=== PATIENT | female | born 1965 | race Caucasian/White ===

== ENCOUNTER 2024-07-07 18:35 | Emergency (ER) | payer OTHER ==
[~2024-07-07] VITALS: Ht 172.7 cm; Wt 70.3 kg
--- NOTE | 2024-07-07 18:41 | NUR ---
PRINTER NOT PRINTING LABELS
[2024-07-07 20:39] LABS: BASOPHILS # (AUTO) 0.03 K/uL (0.00-0.20); BASOPHILS % (AUTO) 0.4 % (0.0-5.0); EOSINOPHILS # (AUTO) 0.02 K/uL (0.00-0.70); EOSINOPHILS % (AUTO) 0.2 % (0.0-8.0); HEMATOCRIT 40.4 % (36-48); IMMATURE GRANULOCYTE ABSOLUTE 0.02 K/uL (0-1); LYMPHOCYTES # (AUTO) 1.4 K/uL (1.0-4.8); LYMPHOCYTES % (AUTO) 17.3 % (21.0-51.0); MEAN CORPUSCULAR HEMOGLOBIN 33.5 pg (27.0-33.0); MEAN CORPUSCULAR HGB CONC 34.2 g/dL (32.0-36.0); MEAN CORPUSCULAR VOLUME 98.1 fL (79-99); MONOCYTES # (AUTO) 0.8 K/uL (0.1-1.0); MONOCYTES % (AUTO) 9.5 % (3.0-13.0); NEUTROPHILS # (AUTO) 5.9 K/uL (1.8-7.7); NEUTROPHILS % (AUTO) 72.4 % (40.0-77.0); PLATELET COUNT (AUTO) 195 K/uL (130-400); RED BLOOD CELL COUNT(AUTO) 4.12 MIL/uL (4.00-5.50); WHITE BLOOD COUNT (AUTO) 8.2 K/uL (4.8-10.8)
[2024-07-07 20:40] LABS: APPEARANCE,URINE CLEAR (CLEAR); BILIRUBIN,URINE NEGATIVE (NEGATIVE); COLOR,URINE LIGHT-YELLOW (YELLOW); GLUCOSE, URINE (UA) NEGATIVE (NEGATIVE); KETONES,URINE NEGATIVE (NEGATIVE); LEUKOCYTE ESTERASE ,URINE 500 Leu/uL (NEGATIVE); NITRATE,URINE NEGATIVE (NEGATIVE); OCCULT BLOOD,URINE LARGE (NEGATIVE); PH,URINE 5.5 (5.0-8.0); PROTEIN,URINE NEGATIVE (NEGATIVE); UROBILINOGEN,URINE 0.2 mg/dL (0.2-1.0)
[2024-07-07 20:41] LABS: ADD UA MICROSCOPIC YES
[2024-07-07 20:43] LABS: BACTERIA,URINE MANY /HPF (None Seen); MUCUS,URINE RARE LPF (None Seen); SQUAMOUS EPITHELIAL CELL,UR RARE /HPF (0-2)
[2024-07-07 20:50] LABS: CREATININE 0.7 mg/dL (0.5-1.0); POTASSIUM 4.2 mmol/L (3.5-5.1)
[2024-07-07] MEDS: LIDOCAINE HCL-MPF 2% 5ML VIAL ONE (21:27)
[2024-07-07] MEDS: cefTRIAXone 1G VIAL IM ONE (21:28)
[2024-07-07] MEDS ORDERED: NITR100C4 PO (21:35)
--- NOTE | 2024-07-07 21:35 | ERN ---
ED Note History of Present Illness Stated Complaint: HEMATURIA Chief Complaint: Blood in Urine: Time Seen by MD: 18:38 Time Seen by Midlevel: 18:38 Dictation: The patient is a 58-year-old female with a history of hyperlipidemia who presents to the emergency department with complaints of hematuria, burning urination, burning your urgency for a month. Patient reports she was taking cranberry juice with the help with symptoms. Patient denies any flank pain, abdominal pain, nausea vomiting, current fevers. Allergies: Coded Allergies: sulfamethoxazole (Unverified Allergy, Unknown, 07/07/24) trimethoprim (Unverified Allergy, Unknown, 07/07/24) Home Meds Active Scripts Nitrofurantoin Monohyd/M-Cryst (Macrobid 100 mg Capsule) 100 Mg Capsule, 1 CAP PO BID for 5 Days, #10 CAP 0 Refills Prov:YESICA MATTHEWS FRANCHISE DEVELOPMENT MANAGER 07/07/24 Past Medical History Past Medical History: Anxiety, High Cholesterol Surgical History: Tonsillectomy, Other RN Note Reviewed/Agreed w/PFSH: Yes Review of System Dictation Constitutional: Negative for fever,chills, and weight loss Eyes: Negative for injury, pain,redness, and discharge ENT: Negative for injury,pain or swelling Cardiovascular: Negative for chest pain, palpitations, and edema Respiratory: Negative for shortness of breath, cough, and wheezing, Abdomen/GI: Negative for abdominal pain, nausea, vomiting, diarrhea, and constipation Back: Negative for injury and pain : Negative for injury,and discharge positive for burning urination, hematuria MS/Extremity: Negative for injury and deformity Skin: Negative for rash, and discoloration Neuro: Negative for headache, weakness, numbness, tingling, and seizure Psych: Negative for suicide ideation, homicidal ideation, and hallucinations Initial Vital Sign VS Vital Signs Date Time Temp Pulse Resp B/P (MAP) Pulse Ox O2 Delivery O2 Flow Rate FiO2 07/07/24 18:36 99.1 93 18 155/92 96 Room Air 0 07/07/24 21:40 21 Physical Exam Dictation Vital Signs reviewed General Appearance: Alert, oriented x 3, no acute distress, well developed, nourished. Head and Face: non-traumatic. Eyes: PERRL, pink conjunctivas, eyelid no trauma, anterior chamber with arcus senilis. Ears: Pinnas intact and no signs of trauma or erythema ear canals clear and no discharge TM no erythema Nose: No discharge, no bleeding. Oropharynx: Mouth normal, tongue pink. pharynx clear,no erythema, tonsils no exudates, no abscesses noted, mucous membrane moist Neck: Supple, non-tender, no thyromegaly, no masses, no JVD, no bruits Breast:Deferred Chest:No tenderness, no crepitus, no paradoxical movement, no retractions Lungs:Clear, well-ventilated, symmetric, no rales, no wheezing, no rhonchi, no stridor, good breath sounds bilaterally Heart: Regular rate, regular rhythm, no murmur, no gallops Vascular: no peripheral edema, Abdomen: Soft, positive bowel sounds, nondistended, no guarding, nontender, no rebound, no masses no hepatomegaly, no splenomegaly, no Malik's sign, no hernias. Rectal: Deferred Genital: Deferred Neurological: Normal speech, motor function intact, sensory function intact Musculoskeletal: Neck nontender, full range of motion, back nontender, full range of motion, Extremities: nontender, full range of motion Skin: Color pink, dry, no turgor, no rash, no lacerations, no abrasions, no contusions. Lymphatic: Deferred Results (Laboratory/Radiology) Laboratory/Radiology Laboratory Tests Test 07/07/24 20:20 07/07/24 20:29 Urine Color LIGHT-YELLOW (YELLOW) Urine Appearance CLEAR (CLEAR) Urine pH 5.5 (5.0-8.0) Urine Specific [place] 1.002 (1.001-1.031) Urine Protein NEGATIVE mg/dL (NEGATIVE) Urine Glucose (UA) NEGATIVE mg/dL (NEGATIVE) Urine Ketones NEGATIVE mg/dL (NEGATIVE) Urine Occult Blood LARGE (NEGATIVE) H Urine Nitrate NEGATIVE (NEGATIVE) Urine Bilirubin NEGATIVE mg/dL (NEGATIVE) Urine Urobilinogen 0.2 mg/dL (0.2-1.0) Urine Leukocyte Esterase 500 Macho/uL (NEGATIVE) H Urine RBC 2-5 /HPF (0-1) H Urine WBC 11-25 /HPF (0-1) H Urine Squamous Epithelial Cells RARE /HPF (0-2) Urine Bacteria MANY /HPF (None Seen) White Blood Count 8.2 K/uL (4.8-10.8) Red Blood Count 4.12 MIL/uL (4.00-5.50) Hemoglobin 13.8 g/dL (12.0-16.0) Hematocrit 40.4 % (36-48) Mean Corpuscular Volume 98.1 fL (79-99) Mean Corpuscular Hemoglobin 33.5 pg (27.0-33.0) H Mean Corpuscular Hemoglobin Concent 34.2 g/dL (32.0-36.0) Red Cell Distribution Width 12.0 % (11.0-15.5) Platelet Count 195 K/uL (130-400) Mean Platelet Volume 9.3 fL (7.5-10.5) Immature Granulocyte % (Auto) 0.2 % (0-1) Neutrophils (%) (Auto) 72.4 % (40.0-77.0) Lymphocytes (%) (Auto) 17.3 % (21.0-51.0) L Monocytes (%) (Auto) 9.5 % (3.0-13.0) Eosinophils (%) (Auto) 0.2 % (0.0-8.0) Basophils (%) (Auto) 0.4 % (0.0-5.0) Neutrophils # (Auto) 5.9 K/uL (1.8-7.7) Lymphocytes # (Auto) 1.4 K/uL (1.0-4.8) Monocytes # (Auto) 0.8 K/uL (0.1-1.0) Eosinophils # (Auto) 0.02 K/uL (0.00-0.70) Basophils # (Auto) 0.03 K/uL (0.00-0.20) Absolute Immature Granulocyte (auto 0.02 K/uL (0-1) Nucleated Red Blood Cells 0.0 % (0.0-0.19) Sodium Level 133 mmol/L (136-145) L Potassium Level 4.2 mmol/L (3.5-5.1) Chloride Level 97 mmol/L (101-111) L Carbon Dioxide Level 27 mmol/L (21-32) Blood Urea Nitrogen 4 mg/dL (7-18) L Creatinine 0.7 mg/dL (0.5-1.0) Glomerular Filtration Rate Calc 101 mL/min (>90) Random Glucose 94 mg/dL (70-105) Total Calcium 9.2 mg/dL (8.5-10.1) Labs Reviewed?: Yes ED Course ED Course Orders Procedure Category Date Status Time Cbc With Differential LAB 07/07/24 Complete 19:20 Urinalysis Profile LAB 07/07/24 Complete 19:20 Basic Metabolic Panel LAB 07/07/24 Complete 19:20 Culture Urine CAIO 07/07/24 Complete 20:42 Ceftriaxone 1g Vial PHA 07/07/24 Complete (Rocephine 1g Inj) 21:00 Lidocaine Hcl-Mpf 2% PHA 07/07/24 Complete 5ml Vial (Lidocaine 21:04 Current Medications Medications (Trade) Dose Ordered Sig/Emiliano Route PRN Reason Start Time Stop Time Status Last Admin Dose Admin Ceftriaxone Sodium (ROCEphine 1G INJ) 1 gm ONCE ONCE IM 07/07/24 21:00 07/07/24 21:01 DC 07/07/24 21:28 Lidocaine HCl (Lidocaine HCl-Mpf 2% 5ml Vial) 1 ml STK-MED ONCE .ROUTE 07/07/24 21:04 07/07/24 21:04 DC Vital Signs Date Time Temp Pulse Resp B/P (MAP) Pulse Ox O2 Delivery O2 Flow Rate FiO2 07/07/24 21:40 98.8 79 18 137/89 98 Room Air* 0 21 07/07/24 18:36 99.1 93 18 155/92 96 Room Air 0 Medical Decision Making MDM The patient is a 58-year-old female with a history of hyperlipidemia who presents to the emergency department with complaints of hematuria, burning urination, burning your urgency for a month. Patient reports she was taking cranberry juice with the help with symptoms. Patient denies any flank pain, abdominal pain, nausea vomiting, current fevers. CBC showed no leukocytosis, mild normocytic anemia, chemistry showed mild hyponatremia, hypochloremia. Urinalysis positive for leukocyte esterase. Patient at this time refuses CT for evaluation of kidney stones. Reports she is not having any pain and states if anything changes to be back to the hospital. Patient in no acute distress, nontoxic appearance, we will be discharged to follow up with PCP. Differential diagnosis: UTI, pyelonephritis, sepsis, electrolyte imbalance, kidney stones Need for hospitalization: Patient does not meet criteria for hospitalization. There are no social concerns with this patient. DX & DISP Disposition: Discharge Departure Impression: Primary Impression: Urinary tract infection with hematuria Condition: Stable Scripts Nitrofurantoin Monohyd/M-Cryst (Macrobid 100 mg Capsule) 100 Mg Capsule 1 CAP PO BID for 5 Days, #10 CAP 0 Refills Prov: YESICA MATTHEWS 07/07/24 Additional Instructions: Please follow up with PCP in 1-2 days. If symptoms worsen please return to ER. FOLLOW-UP WITH PRIMARY CARE PROVIDER IN 1 TO 2 DAYS. TAKE MEDICATIONS DIRECTED HERE IN THE EMERGENCY ROOM. OKAY TO CONTINUE HOME MEDICATIONS UNLESS OTHERWISE DISCUSSED DURING YOUR VISIT IN THE EMERGENCY ROOM TODAY. RETURN TO YOUR NEAREST EMERGENCY ROOM IF SYMPTOMS WORSEN OR IF THERE IS NO IMPROVEMENT. CALL 911 IF YOU NEED IMMEDIATE ASSISTANCE. TAKE TYLENOL OR MOTRIN [id number] NEEDED AND IF NO CONTRAINDICATIONS ARE PRESENT. INCREASE ORAL HYDRATION. A WOUND CULTURE OR URINE CULTURE WAS ORDERED HERE IN THE EMERGENCY ROOM DEPARTMENT PLEASE FOLLOW-UP WITH PRIMARY CARE PROVIDER AND ADVISE THEM TO GET REPEAT PORTS FROM OUR FACILITY. IF YOU HAD ANY ELDER WRAP/SPLINTS THAT WERE APPLIED HERE, PLEASE DO NOT REMOVE THEM UNTIL YOU SEE YOUR PRIMARY CARE OR SPECIALTY. Referrals: SELF,REFERRAL (PCP) Time of Disposition: 21:34 I have reviewed the case, and I agree with, Diagnosis and Plan ATTESTATION BY PHYSICIAN I PERFORMED THE SUBSTANTIVE PORTION OF THE VISIT. I HAVE REVIEWED AND PERSONALLY MADE AND APPROVED THE MANAGEMENT PLAN THAT IS DOCUMENTED IN THE NOTE BY MYSELF FOR THE A PP. I ACKNOWLEDGED FOR RESPONSIBILITY FOR THE PATIENT'S MANAGEMENT PLAN. YESICA MATTHEWS Jul 07, 2024 21:35 STEWART THAYER MD Jul 09, 2024 19:18
[2024-07-07 21:40] VITALS: BP 137/89; PULSE 79; RESP 18; TEMP 98.7; O2SAT 98
== END 2024-07-07 21:43 | disposition home or self-care (01) ==
LOC: EDH 18:35
DX: N39.0 Urinary tract infection, site not specified (principal); R31.9 Hematuria, unspecified; E78.00 Pure hypercholesterolemia, unspecified; Z88.1 Allergy status to other antibiotic agents; Z88.2 Allergy status to sulfonamides; Z90.89 Acquired absence of other organs
CPT/HCPCS: 99283; 80048; 85025; 87086 ×2; 87186; 81001; 36415; 96372; J0696; J3490

== ENCOUNTER 2024-07-19 12:39 | Observation (INO) | payer OTHER ==
[~2024-07-19] VITALS: Ht 172.7 cm; Wt 71.6 kg
[~2024-07-19 12:39] MED LIST: NITR100C4 PO
--- NOTE | 2024-07-19 15:50 | NUR ---
PT PLACED IN MINAYA D AT THIS TIME AOX4 NO SIGNS OF DISTRESS
--- NOTE | 2024-07-19 16:10 | HMCIMG ---
CT ABDOMEN/PELVIS W/O CONTRAST REASON: r/o pyelonephritis COMPARISON: None. FINDINGS: Lung bases are clear. There are no focal liver lesions. Liver is not enlarged.. Spleen and pancreas appear unremarkable. The gallbladder appears normal as well. Kidneys appear normal. There is no perinephric stranding. There is no evidence of mass, stone or hydronephrosis. Ureters and urinary bladder appear unremarkable as well. Bowel loops appear unremarkable. This includes normal appearance of the appendix There is no evidence of free fluid or intraperitoneal air. There are no focal fluid collections. Aorta and retroperitoneum appear normal as do pelvic soft tissue structures. The anterior abdominal wall is intact. Osseous structures appear unremarkable. IMPRESSION: 1. Negative noncontrast CT abdomen and pelvis with particular attention to the kidneys. CT was performed with one or more following dose reduction techniques: automated exposure control, adjustment of the mA and kv according to patient's size, or use of a iterative reconstruction technique.
[2024-07-19 16:22] LABS: APPEARANCE,URINE CLEAR (CLEAR); BILIRUBIN,URINE NEGATIVE (NEGATIVE); COLOR,URINE COLORLESS (YELLOW); GLUCOSE, URINE (UA) NEGATIVE (NEGATIVE); KETONES,URINE NEGATIVE (NEGATIVE); LEUKOCYTE ESTERASE ,URINE 75 Leu/uL (NEGATIVE); NITRATE,URINE NEGATIVE (NEGATIVE); OCCULT BLOOD,URINE LARGE (NEGATIVE); PROTEIN,URINE NEGATIVE (NEGATIVE); UROBILINOGEN,URINE 0.2 mg/dL (0.2-1.0)
[2024-07-19 16:25] LABS: ADD UA MICROSCOPIC YES
[2024-07-19 16:27] LABS: BACTERIA,URINE FEW /HPF (None Seen); SQUAMOUS EPITHELIAL CELL,UR RARE /HPF (0-2); UNCLASSIFIED CRYSTAL 1 /HPF (None Seen)
[2024-07-19 16:30] LABS: BASOPHILS # (AUTO) 0.09 K/uL (0.00-0.20); EOSINOPHILS # (AUTO) 0.11 K/uL (0.00-0.70); EOSINOPHILS % (AUTO) 1.3 % (0.0-8.0); HEMATOCRIT 41.1 % (36-48); IMMATURE GRANULOCYTE ABSOLUTE 0.02 K/uL (0-1); LYMPHOCYTES # (AUTO) 2.5 K/uL (1.0-4.8); MEAN CORPUSCULAR HEMOGLOBIN 32.9 pg (27.0-33.0); MEAN CORPUSCULAR HGB CONC 33.1 g/dL (32.0-36.0); MEAN CORPUSCULAR VOLUME 99.5 fL (79-99); MONOCYTES # (AUTO) 0.5 K/uL (0.1-1.0); MONOCYTES % (AUTO) 5.7 % (3.0-13.0); NEUTROPHILS # (AUTO) 5.6 K/uL (1.8-7.7); NEUTROPHILS % (AUTO) 63.8 % (40.0-77.0); PLATELET COUNT (AUTO) 325 K/uL (130-400); RED BLOOD CELL COUNT(AUTO) 4.13 MIL/uL (4.00-5.50); RED CELL DISTRIBUTION WIDTH 12.4 % (11.0-15.5); WHITE BLOOD COUNT (AUTO) 8.8 K/uL (4.8-10.8)
[2024-07-19 16:47] LABS: CREATININE 0.5 mg/dL (0.5-1.0); POTASSIUM 3.5 mmol/L (3.5-5.1)
--- NOTE | 2024-07-19 18:22 | ERN ---
General Chief Complaint: UTI without Fever Stated Complaint: UTI WITH HEMATURIA Time Seen by MD: 13:25 Time Seen by Midlevel: 13:25 Source: patient History of Present Illness Initial Comments The patient is a 58-year-old female presenting to the emergency department with dysuria and hematuria. Patient reports being diagnosed with a urinary tract infection one month ago. She was seen in our emergency department one week ago and was placed on Macrobid however she states her symptoms have significantly worsened. She reports continued dysuria and hematuria along with lower abdominal pain. She specifically denies any fever, chills, or any other symptoms. Allergies: Coded Allergies: sulfamethoxazole (Unverified Allergy, Unknown, 07/07/24) trimethoprim (Unverified Allergy, Unknown, 07/07/24) Home Meds Active Scripts Nitrofurantoin Monohyd/M-Cryst (Macrobid 100 mg Capsule) 100 Mg Capsule, 1 CAP PO BID for 5 Days, #10 CAP 0 Refills Prov:YESICA MATTHEWS PASTORAL WORKER 07/07/24 Past Medical History Past Medical History: Anxiety, High Cholesterol, UTI, Other Medical History Other: OPIOID ADDICTION Past Surgical History: Tonsillectomy, Other Surgical History Other: TUBAL ROS Dictation CONSTITUTIONAL: Negative except for HPI HEAD/FACE: Negative except for HPI EENT: Negative except for HPI RESPIRATORY: Negative except for HPI GASTROINTESTINAL/ABDOMINAL: Negative except for HPI GENITOURINARY: Negative except for HPI MUSCULOSKELETAL: Negative except for HPI INTEGUMENTARY: Negative except for HPI NEUROLOGICAL/PSYCH: Negative except for HPI HEMATOLOGIC/LYMPHATIC: Negative except for HPI All Systems Negative, Except as noted above. 13 point review of systems assessed and all negative except for above. Physical Exam Physical Exam Dictation Vital Signs reviewed General Appearance: Alert, oriented x 3, no acute distress, well developed, nourished. Head and Face: non-traumatic. Eyes: PERRL, pink conjunctivas, eyelid no trauma, anterior chamber with arcus senilis. Ears: Pinnas intact and no signs of trauma or erythema ear canals clear and no discharge TM no erythema Nose: No discharge, no bleeding. Oropharynx: Mouth normal, tongue pink, pharynx clear,no erythema, tonsils no exudates, no abscesses noted, mucous membrane moist Neck: Supple, non-tender, no thyromegaly, no masses, no JVD, no bruits Breast:Deferred Chest:No tenderness, no crepitus, no paradoxical movement, no retractions Lungs:Clear, well-ventilated, symmetric, no rales, no wheezing, no rhonchi, no stridor, good breath sounds bilaterally Heart: Regular rate, regular rhythm, no murmur, no gallops Vascular: no peripheral edema, Abdomen: Soft, positive bowel sounds, nondistended, no guarding, nontender, no rebound, no masses no hepatomegaly, no splenomegaly, no Malik's sign, no hernias. Rectal: Deferred Genital: Deferred Neurological: Normal speech, motor function intact, sensory function intact Musculoskeletal: Neck nontender, full range of motion, back nontender, full range of motion, Extremities: nontender, full range of motion Skin: Color pink, dry, no turgor, no rash, no lacerations, no abrasions, no contusions. Lymphatic: Deferred Results Laboratory and Microbiology Lab and Micro Result Laboratory Tests Test 07/19/24 15:30 07/19/24 16:07 Urine Color COLORLESS (YELLOW) Urine Appearance CLEAR (CLEAR) Urine pH 5.0 (5.0-8.0) Urine Specific [place] 1.001 (1.001-1.031) Urine Protein NEGATIVE mg/dL (NEGATIVE) Urine Glucose (UA) NEGATIVE mg/dL (NEGATIVE) Urine Ketones NEGATIVE mg/dL (NEGATIVE) Urine Occult Blood LARGE (NEGATIVE) H Urine Nitrate NEGATIVE (NEGATIVE) Urine Bilirubin NEGATIVE mg/dL (NEGATIVE) Urine Urobilinogen 0.2 mg/dL (0.2-1.0) Urine Leukocyte Esterase 75 Macho/uL (NEGATIVE) H Urine RBC None /HPF (0-1) Urine WBC 2-5 /HPF (0-1) H Urine Squamous Epithelial Cells RARE /HPF (0-2) Urine Other Crystals (Auto) 1 /HPF (None Seen) Urine Bacteria FEW /HPF (None Seen) White Blood Count 8.8 K/uL (4.8-10.8) Red Blood Count 4.13 MIL/uL (4.00-5.50) Hemoglobin 13.6 g/dL (12.0-16.0) Hematocrit 41.1 % (36-48) Mean Corpuscular Volume 99.5 fL (79-99) H Mean Corpuscular Hemoglobin 32.9 pg (27.0-33.0) Mean Corpuscular Hemoglobin Concent 33.1 g/dL (32.0-36.0) Red Cell Distribution Width 12.4 % (11.0-15.5) Platelet Count 325 K/uL (130-400) Mean Platelet Volume 8.8 fL (7.5-10.5) Immature Granulocyte % (Auto) 0.2 % (0-1) Neutrophils (%) (Auto) 63.8 % (40.0-77.0) Lymphocytes (%) (Auto) 28.0 % (21.0-51.0) Monocytes (%) (Auto) 5.7 % (3.0-13.0) Eosinophils (%) (Auto) 1.3 % (0.0-8.0) Basophils (%) (Auto) 1.0 % (0.0-5.0) Neutrophils # (Auto) 5.6 K/uL (1.8-7.7) Lymphocytes # (Auto) 2.5 K/uL (1.0-4.8) Monocytes # (Auto) 0.5 K/uL (0.1-1.0) Eosinophils # (Auto) 0.11 K/uL (0.00-0.70) Basophils # (Auto) 0.09 K/uL (0.00-0.20) Absolute Immature Granulocyte (auto 0.02 K/uL (0-1) Nucleated Red Blood Cells 0.0 % (0.0-0.19) Sodium Level 138 mmol/L (136-145) Potassium Level 3.5 mmol/L (3.5-5.1) Chloride Level 104 mmol/L (101-111) Carbon Dioxide Level 26 mmol/L (21-32) Blood Urea Nitrogen 3 mg/dL (7-18) L Creatinine 0.5 mg/dL (0.5-1.0) Glomerular Filtration Rate Calc 109 mL/min (>90) Random Glucose 96 mg/dL (70-105) Lactic Acid Level 2.0 mmol/L (0.8-2.5) Total Calcium 8.7 mg/dL (8.5-10.1) Troponin I High Sensitivity < 4 ng/L (4-50) L Procalcitonin < 0.05 ng/mL (0.05-0.5) L Labs Reviewed?: Yes MDM MDM: Differential diagnosis: Complicated urinary tract infection, pyelonephritis, ESBL, Rationale: Tests considered and ordered secondary to shared decision making include: Previous outside records reviewed: Old ER visits. Risk of complication and/or morbidity or mortality of patient management: None Medications-Per medication reconciliation Need for hospitalization: Patient does meet criteria for hospitalization. Need for emergency major/minor surgery: No There are no social concerns with this patient. Prescription drug management Prescriptions will include symptomatic care Patient's prior external medical records from other ER visits were reviewed by me as indicated. Prior testing and results from previous visits were reviewed. Prior tests were taken into account with medical decision making and resource utilization, independent historian/historians were used to obtain complete medical history. I independently interpreted the test that were performed, results were reviewed by me and considered findings on radiology if ordered. Medical management and examination interpretation discussions were had by me wi th other qualified healthcare professionals as indicated for the patient's care. ED Course Orders Procedure Category Date Status Time Urinalysis Profile LAB 07/19/24 Complete 14:11 Cbc With Differential LAB 07/19/24 Complete 15:26 Basic Metabolic Panel LAB 07/19/24 Complete 15:26 Blood Cult CAIO 07/19/24 In Process 15:39 Lactic Acid LAB 07/19/24 Complete 15:39 Procalcitonin LAB 07/19/24 Complete 15:39 Troponin I High LAB 07/19/24 Complete Sensitivity 15:39 Ct Abdomen/Pelvis W/O CT 07/19/24 Resulted Contrast 15:39 Culture Urine CAIO 07/19/24 In Process 16:25 Zosyn 3.375gm+Ns 50ml PHA 07/19/24 Complete (Zosyn 3.375gm+Ns 17:30 Current Medications Medications (Trade) Dose Ordered Sig/Emiliano Route PRN Reason Start Time Stop Time Status Last Admin Dose Admin Piperacillin Sod/ Tazobactam Sod (Zosyn 3.375gm+NS 50ml) 3.375 gm ONCE ONCE IV 07/19/24 17:30 07/19/24 17:49 DC 07/19/24 19:06 Vital Signs Date Time Temp Pulse Resp B/P (MAP) Pulse Ox O2 Delivery O2 Flow Rate FiO2 07/19/24 12:59 98.8 89 20 107/70 96 Room Air 0 DX & DISP Disposition: Inpatient Departure Impression: Primary Impression: Complicated urinary tract infection Additional Impression: ESBL (extended spectrum beta-lactamase) producing bacteria infection Condition: Stable Referrals: SELF,REFERRAL (PCP) I have reviewed the case, and I agree with, Diagnosis and Plan I performed the substantive portion of the visit. I have reviewed and personally made and approve the management plan that is documented in the note by myself or the AV. I acknowledge for responsibility for the patient's management plan. PHILIPP BONDS Jul 19, 2024 18:22
[2024-07-19] MEDS: ZOSYN 3.375GM +NS 50ML IV ONE (19:06)
--- NOTE | 2024-07-19 19:44 | HP ---
[facility] HISTORY AND PHYSICAL Date of Service: Jul 19, 2024 Time of Service: 19:44 Supervising physicians: Dr. Teran and Dr. Cheri Lundy HISTORY OF PRESENT ILLNESS: Ms Nuñez is a 58-year-old female who presented to [facility] for evaluation of dysuria and hematuria. Patient reported being diagnosed with a urinary tract infection one month ago. Then she was seen in this ED and was placed on Macrobid on 07/07/2024 however she stated her symptoms have significantly worsened. She reported continued dysuria and hematuria along with lower abdominal pain. The patient denied fever, chills, or any other symptoms. In ED the patient was started on Zosyn 3.375 per cultures susceptibility done on . ED provider reports that the patient has been on two antibiotics with no improvement and request patient be admitted with the diagnosis of complicated urinary tract infection, ESBL producing bacteria infection. I went to assess the patient at bedside. RN reports the patient went to the restroom and complained of burning with the urination. Patient appeared comfortable, in no distress. Breathing was even and unlabored. Patient reports that she is hoping to be discharged tomorrow due needing to take care of the child. She reports that there is nobody else that could help take care of the child. We will consult Infectious Disease for evaluation of possible a patient IV therapy and evaluation acute complicated cystitis with failed antibiotic therapy. I informed patient of labs, diagnosis, plan of care. She verbalized understanding and is in agreement with the plan. Plan and assessment as listed below. REVIEW OF SYSTEMS 12-point ROS reviewed with the patient. All pertinent positives mentioned above. Otherwise negative, noncontributory, or non-pertinent. PAST MEDICAL HISTORY: As mentioned above PAST SURGICAL HISTORY: Tonsillectomy, BTL PAST SOCIAL HISTORY: Denied: Tobacco, illicit drug, EtOH use History of opioid addiction FAMILY HISTORY: Noncontributory Coded Allergies: sulfamethoxazole (Unverified Allergy, Unknown, 07/07/24) trimethoprim (Unverified Allergy, Unknown, 07/07/24) PHYSICAL EXAM GENERAL APPEARANCE: The patient is awake, alert, and oriented, in no acute cardiopulmonary distress. NEUROLOGICAL: Cranial nerves II-XII grossly intact. Motor is 5/5 in bilateral upper and lower extremities proximal to distal. No sensory deficits. HEENT: Face is symmetric. Pupils are equal and reactive. Extraocular movements are intact. NECK: Supple. No JVD. No thyromegaly. No submental, submandibular, pre- /postauricular, occipital or supraclavicular lymphadenopathy. CHEST: Normal chest expansion. No Telemetry. LUNGS: Absence of any rales, rhonchi or any wheezing. CARDIOVASCULAR: Regular. S1 and S2 normal. No appreciable rubs, murmurs or gallops. ABDOMEN: Soft, nontender, and nondistended. There is no rebound, voluntary guarding, or rigidity. : Deferred. No [place]. EXTREMITIES: Non-edematous and not cyanotic. No clubbing. Good capillary refill. SKIN: No skin breakdown. Vital Sign (Last 24 Hours) 07/19/24 19:17 Temp 98.8 Pulse 89 Resp 18 B/P (MAP) 148/90 Pulse Ox 97 O2 Delivery Room Air* O2 Flow Rate 0 FiO2 21 LABS: Laboratory: Test 07/19/24 16:07 07/19/24 15:30 Range/Units White Blood Count 8.8 4.8-10.8 K/uL Red Blood Count 4.13 4.00-5.50 MIL/uL Hemoglobin 13.6 12.0-16.0 g/dL Hematocrit 41.1 36-48 % Mean Corpuscular Volume 99.5 H 79-99 fL Mean Corpuscular Hemoglobin 32.9 27.0-33.0 pg Mean Corpuscular Hemoglobin Concent 33.1 32.0-36.0 g/dL Red Cell Distribution Width 12.4 11.0-15.5 % Platelet Count 325 130-400 K/uL Mean Platelet Volume 8.8 7.5-10.5 fL Immature Granulocyte % (Auto) 0.2 0-1 % Neutrophils (%) (Auto) 63.8 40.0-77.0 % Lymphocytes (%) (Auto) 28.0 21.0-51.0 % Monocytes (%) (Auto) 5.7 3.0-13.0 % Eosinophils (%) (Auto) 1.3 0.0-8.0 % Basophils (%) (Auto) 1.0 0.0-5.0 % Neutrophils # (Auto) 5.6 1.8-7.7 K/uL Lymphocytes # (Auto) 2.5 1.0-4.8 K/uL Monocytes # (Auto) 0.5 0.1-1.0 K/uL Eosinophils # (Auto) 0.11 0.00-0.70 K/uL Basophils # (Auto) 0.09 0.00-0.20 K/uL Absolute Immature Granulocyte (auto 0.02 0-1 K/uL Nucleated Red Blood Cells 0.0 0.0-0.19 % Sodium Level 138 136-145 mmol/L Potassium Level 3.5 3.5-5.1 mmol/L Chloride Level 104 101-111 mmol/L Carbon Dioxide Level 26 21-32 mmol/L Blood Urea Nitrogen 3 L 7-18 mg/dL Creatinine 0.5 0.5-1.0 mg/dL Glomerular Filtration Rate Calc 109 >90 mL/min Random Glucose 96 70-105 mg/dL Lactic Acid Level 2.0 0.8-2.5 mmol/L Total Calcium 8.7 8.5-10.1 mg/dL Troponin I High Sensitivity < 4 L 4-50 ng/L Procalcitonin < 0.05 L 0.05-0.5 ng/mL Urine Color COLORLESS YELLOW Urine Appearance CLEAR CLEAR Urine pH 5.0 5.0-8.0 Urine Specific [place] 1.001 1.001-1.031 Urine Protein NEGATIVE NEGATIVE mg/dL Urine Glucose (UA) NEGATIVE NEGATIVE mg/dL Urine Ketones NEGATIVE NEGATIVE mg/dL Urine Occult Blood LARGE H NEGATIVE Urine Nitrate NEGATIVE NEGATIVE Urine Bilirubin NEGATIVE NEGATIVE mg/dL Urine Urobilinogen 0.2 0.2-1.0 mg/dL Urine Leukocyte Esterase 75 H NEGATIVE [place]/uL Urine RBC None 0-1 /HPF Urine WBC 2-5 H 0-1 /HPF Urine Squamous Epithelial Cells RARE 0-2 /HPF Urine Other Crystals (Auto) 1 None Seen /HPF Urine Bacteria FEW None Seen /HPF DIAGNOSTICS / RADIOLOGY: [ ] ASSESSMENT: Acute complicated cystitis, POA Recurrent urinary tract infection, + ESBL on 07/2024 Chronic problem list: Anxiety, hypercholesteremia, history of opiate addiction PLAN: Admit to medical floor. Continue Zosyn 73.375 IV q.8 hours (per urine culture susceptibility on 07/07/2024). Start Pyridium 200 mg PO TID scheduled X2 days. Monitor for fevers. Follow WBCs and urine cultures. Antibiotics tailored to urine cultures. Start IV gentle hydration. Consult infectious disease for evaluation of recurrent UTI with failed outpatient antibiotic therapy, and evaluation at valve patient IV antibiotic. P.r.n. medications for: Pain management, fever, nausea, vomiting, hypertension, constipation Oxygen therapy as needed to keep SpO2 equal greater than 92%. Blood pressures every4 hours and as needed. Home medication was reviewed. Monitor renal and liver function. Monitor electrolytes and treat accordingly. A.m. labs: CBC, BNP, Mag, phos, A1c, TSH. GI and DVT prophylaxis. ADVANCED CARE PLANNING 1. Which of the following were discussed? Hospice Care - No Therapeutic options - Yes Advance Directives - Yes Other discussions - 2. Discussed with who? The patient 3. Voluntary nature of this service was explained to the patient? Yes 4. Amount of time spent - __ over 35 minute Patient seen and examined by me. Agree with note by DIE STAMPING PRESS OPERATOR SEE ADDITIONAL ORDERS PER CHART DISCUSSED WITH NURSING STAFF 5. Reviewed by Physician? (if this service was performed by NPP) Yes / No ANIL BOOGIE CENSUS CLERK Jul 19, 2024 19:44
[2024-07-19] MEDS ORDERED: acetaMINOPHEN 650 MG SUPPOSITORY RC PRN (20:00)
[2024-07-19] MEDS ORDERED: hydrALAZine 20MG/ML VIAL IV PRN (20:00)
[2024-07-19] MEDS ORDERED: ondanSETRON 4MG INJ IVP PRN (20:00)
[2024-07-19] MEDS ORDERED: LACTULOSE 20 GM/30 ML UDCUP PO PRN (20:00)
[2024-07-19] MEDS ORDERED: doCUSate SODIUM 100 MG CAP PO PRN (20:00)
[2024-07-19] MEDS: 0.9%NACL 1000ML 1,000 ML IV SCH (20:10)
--- NOTE | 2024-07-19 21:24 | NUR ---
REPORT GIVEN TO NURSE ACEVES./FIDENCIO
[2024-07-19 21:35] VITALS: BP 156/89; PULSE 88; RESP 18; TEMP 98.4
[2024-07-19] MEDS: TEMAZepam 15 MG CAPSULE PO PRN (22:35)
[2024-07-19] MEDS: PHENAZOpyridine HCL 200 MG TAB 200 MG TABLET PO SCH (22:36)
[2024-07-19] MEDS: acetaMINOPHEN 325 MG TAB PO PRN (22:43)
[2024-07-20] VITALS (7 sets, daily range): BP systolic 131–162; BP diastolic 70–98; PULSE 63–87; RESP 18–19; TEMP 98.2–98.6; O2SAT 99
[2024-07-20] MEDS: DiphenhydrAMINE HCL 50 MG/ML VIAL IV ONE (02:13)
[2024-07-20] MEDS: ZOSYN 3.375GM +NS 50ML IV SCH (02:13)
[2024-07-20 06:07] LABS: HEMATOCRIT 36.9 % (36-48); MEAN CORPUSCULAR HEMOGLOBIN 33.7 pg (27.0-33.0); MEAN CORPUSCULAR HGB CONC 33.3 g/dL (32.0-36.0); MEAN CORPUSCULAR VOLUME 101.1 fL (79-99); RED BLOOD CELL COUNT(AUTO) 3.65 MIL/uL (4.00-5.50); RED CELL DISTRIBUTION WIDTH 12.5 % (11.0-15.5); WHITE BLOOD COUNT (AUTO) 8.7 K/uL (4.8-10.8)
[2024-07-20 06:33] LABS: CREATININE 0.8 mg/dL (0.5-1.0); PHOSPHORUS 4.3 mg/dL (2.5-4.9); POTASSIUM 4.6 mmol/L (3.5-5.1); THYROID STIMULATING HORMONE 9.02 uIU/mL (0.36-3.74)
[2024-07-20] MEDS: ENOXAPARIN SODIUM 30 MG/0.3 ML SQ SCH (08:03)
--- NOTE | 2024-07-20 10:30 | PN ---
[facility] PROGRESS NOTE Date of Service: Jul 20, 2024 Time of Service: 10:30 SUBJECTIVE: [ ] Patient seen and examined in room 317 PCP self-referral Admitting date 07/19/2024 Today on bedside evaluation patient was found awake alert and oriented x 3. No incidences reported by primary nurse. This morning's vitals and labs are stable. Urine cultures growing Gram-negative rods, pending final results. Patient with recent history of ESBL E coli. Consulting Dr. Ordonez for antibiotic stewardship. We will continue to monitor closely. Discussed with primary nurse REVIEW OF SYSTEMS 12-point ROS reviewed with the patient. All pertinent positives mentioned above. Otherwise negative, noncontributory, or non-pertinent. PHYSICAL EXAM GENERAL APPEARANCE: The patient is awake, alert, and oriented, in no acute ca rdiopulmonary distress. NEUROLOGICAL: Cranial nerves II-XII grossly intact. Motor is 5/5 in bilateral upper and lower extremities proximal to distal. No sensory deficits. HEENT: Face is symmetric. Pupils are equal and reactive. Extraocular movements are intact. NECK: Supple. No JVD. No thyromegaly. No submental, submandibular, pre- /postauricular, occipital or supraclavicular lymphadenopathy. CHEST: Normal chest expansion. No Telemetry. LUNGS: Absence of any rales, rhonchi or any wheezing. CARDIOVASCULAR: Regular. S1 and S2 normal. No appreciable rubs, murmurs or gallops. ABDOMEN: Soft, nontender, and nondistended. There is no rebound, voluntary guarding, or rigidity. : Deferred. No [place]. EXTREMITIES: Non-edematous and not cyanotic. No clubbing. Good capillary refill. SKIN: No skin breakdown. Vital Signs (last 8hr) Date Time Temp Pulse Resp B/P (MAP) Pulse Ox O2 Delivery O2 Flow Rate FiO2 07/20/24 08:00 98.6 67 18 162/85 99 Room Air 21 07/20/24 04:00 98.2 76 18 147/98 99 Room Air LABS: Laboratory: Test 07/20/24 06:00 07/19/24 16:07 07/19/24 15:30 Range/Units White Blood Count 8.7 4.8-10.8 K/uL Red Blood Count 3.65 L 4.00-5.50 MIL/uL Hemoglobin 12.3 12.0-16.0 g/dL Hematocrit 36.9 36-48 % Mean Corpuscular Volume 101.1 H 79-99 fL Mean Corpuscular Hemoglobin 33.7 H 27.0-33.0 pg Mean Corpuscular Hemoglobin Concent 33.3 32.0-36.0 g/dL Red Cell Distribution Width 12.5 11.0-15.5 % Platelet Count 281 130-400 K/uL Mean Platelet Volume 8.7 7.5-10.5 fL Nucleated Red Blood Cells 0.0 0.0-0.19 % Sodium Level 139 136-145 mmol/L Potassium Level 4.6 3.5-5.1 mmol/L Chloride Level 107 101-111 mmol/L Carbon Dioxide Level 28 21-32 mmol/L Blood Urea Nitrogen 5 L 7-18 mg/dL Creatinine 0.8 0.5-1.0 mg/dL Glomerular Filtration Rate Calc 86 >90 mL/min Random Glucose 100 70-105 mg/dL Total Calcium 8.6 8.5-10.1 mg/dL Phosphorus Level 4.3 2.5-4.9 mg/dL Magnesium Level 2.00 1.80-2.40 mg/dL Thyroid Stimulating Hormone (TSH) 9.02 H 0.36-3.74 uIU/mL Immature Granulocyte % (Auto) 0.2 0-1 % Neutrophils (%) (Auto) 63.8 40.0-77.0 % Lymphocytes (%) (Auto) 28.0 21.0-51.0 % Monocytes (%) (Auto) 5.7 3.0-13.0 % Eosinophils (%) (Auto) 1.3 0.0-8.0 % Basophils (%) (Auto) 1.0 0.0-5.0 % Neutrophils # (Auto) 5.6 1.8-7.7 K/uL Lymphocytes # (Auto) 2.5 1.0-4.8 K/uL Monocytes # (Auto) 0.5 0.1-1.0 K/uL Eosinophils # (Auto) 0.11 0.00-0.70 K/uL Basophils # (Auto) 0.09 0.00-0.20 K/uL Absolute Immature Granulocyte (auto 0.02 0-1 K/uL Lactic Acid Level 2.0 0.8-2.5 mmol/L Troponin I High Sensitivity < 4 L 4-50 ng/L Procalcitonin < 0.05 L 0.05-0.5 ng/mL Urine Color COLORLESS YELLOW Urine Appearance CLEAR CLEAR Urine pH 5.0 5.0-8.0 Urine Specific [place] 1.001 1.001-1.031 Urine Protein NEGATIVE NEGATIVE mg/dL Urine Glucose (UA) NEGATIVE NEGATIVE mg/dL Urine Ketones NEGATIVE NEGATIVE mg/dL Urine Occult Blood LARGE H NEGATIVE Urine Nitrate NEGATIVE NEGATIVE Urine Bilirubin NEGATIVE NEGATIVE mg/dL Urine Urobilinogen 0.2 0.2-1.0 mg/dL Urine Leukocyte Esterase 75 H NEGATIVE [place]/uL Urine RBC None 0-1 /HPF Urine WBC 2-5 H 0-1 /HPF Urine Squamous Epithelial Cells RARE 0-2 /HPF Urine Other Crystals (Auto) 1 None Seen /HPF Urine Bacteria FEW None Seen /HPF Current Medications Medications (Trade) Dose Ordered Sig/Emiliano Route PRN Reason Start Time Stop Time Status Last Admin Dose Admin Acetaminophen (TYLenol 325MG TAB) 650 mg Q6H PRN PO FEVER/MILD PAIN LEVEL 1-3 07/19/24 20:00 08/18/24 19:59 07/19/24 22:43 650 MG Acetaminophen (TYLenol 650MG SUPPOSITORY) 650 mg Q6H PRN RC FEVER / MILD PAIN 1-3 IF NPO 07/19/24 20:00 08/18/24 19:59 Docusate Sodium (COLace 100MG CAP) 100 mg BID PRN PO CONSTIPATION 07/19/24 20:00 08/18/24 19:59 Enoxaparin Sodium (Lovenox) 30 mg DAILY SQ 07/20/24 09:00 08/19/24 08:59 07/20/24 08:03 30 MG Hydralazine HCl (APRESOLine 20MG INJ) 10 mg Q2H PRN IV SBP GREATER THAN 160 07/19/24 20:00 08/18/24 19:59 Lactulose (Constulose 20gm/ 30ml Udcup) 20 gm Q6H PRN PO CONSTIPATION 07/19/24 20:00 08/18/24 19:59 Ondansetron HCl (zoFRAN 4MG INJ) 4 mg Q6H PRN IVP NAUSEA/VOMITING 07/19/24 20:00 08/18/24 19:59 Phenazopyridine HCl (PYRIdium HCL 200 MG TAB) 200 mg Q8H PO 07/19/24 22:30 07/22/24 23:59 07/20/24 06:05 200 MG Piperacillin Sod/ Tazobactam Sod (Zosyn 3.375gm+NS 50ml) 3.375 gm Q8H IV 07/20/24 03:00 07/30/24 02:59 07/20/24 02:13 3.375 GM Sodium Chloride 1,000 ml @ 75 mls/hr [id number] IV 07/19/24 20:00 08/18/24 19:59 07/19/24 22:34 75 MLS/HR Temazepam (restORIL 15 MG CAP) 15 mg HS PRN PO INSOMNIA/SLEEP 07/19/24 20:00 08/18/24 19:59 07/19/24 22:35 15 MG DIAGNOSTICS / RADIOLOGY: [ ] ASSESSMENT: Acute complicated cystitis, POA Recurrent urinary tract infection, + ESBL on 07/2024 Chronic problem list: Anxiety, hypercholesteremia, history of opiate addiction PLAN: Continues admission in the medical floor Continue heart healthy diet Continue Zosyn 73.375 IV q.8 hours (per urine culture susceptibility on 07/07/2024). Consulting with Dr. Ordonez for antibiotic stewardship Continue Pyridium 200 mg PO TID scheduled X2 days. Monitor for fevers. Follow WBCs and urine cultures. Antibiotics tailored to urine cultures. Continue IV gentle hydration with NS at 75 mL/hr Monitor Blood pressures every4 hours and as needed. Continue amlodipine 5 mg p.o. daily Continue hydralazine 10 mg IV for systolic above 160 mmHg Home medication was reviewed. Continue to monitor renal and liver function. Monitor and replace electrolytes per hospital protocol Continue to monitor a.m. labs, final cultures PRN Treatment - Add when necessary meds for nausea, vomiting, pain, constipation, insomnia. DVT/GI prophylaxis- Continue Lovenox at current dose. Full CODE STATUS This document was generated in part using voice recognition software, occasional wrong word or sound alike substitutions may have occurred due to the inherent limitations of voice recognition software. Read the chart carefully and recognize using context, where the substitutions have occurred. Although every effort was made to edit the content, statistics manager and typing errors may occur This case was discussed with Dr. Teran and above plan was formulated ИВАН LACKEYP Jul 20, 2024 10:30
[2024-07-20 11:00] LABS: T4 (THYROXINE) 4.7 ug/dL (4.7-13.3)
[2024-07-20] MEDS: amLODIPine 5 MG TAB PO SCH (12:59)
--- NOTE | 2024-07-20 20:00 | NUR ---
ASSESS SHIFT ASSESSMENT DONE, PLEASE REFER TO CHART. CONTINUED IVF AND IV ZOSYN INFUSION. KEPT RESTED AND COMFORTABLE IN BED. CALL LIGHT WITHIN REACH.
--- NOTE | 2024-07-20 21:54 | CONS ---
INFECTIOUS DISEASE CONSULTATION DATE OF SERVICE: 07/20/2024 REQUESTING PHYSICIAN: Brett Teran MD REASON FOR CONSULTATION: UTI. HISTORY OF PRESENT ILLNESS: This is a 58-year-old female with history of recurrent UTI, hypertension, presented to the hospital with dysuria and urinary frequency. The patient also has some chills but no fever. The patient recently treated for UTI about 2 weeks ago. The patient was treated with Macrobid, but came back with dysuria and urinary frequency. No nausea or vomiting. The patient has been started on Zosyn. PAST MEDICAL HISTORY: * UTI. * Hypertension. PAST SURGICAL HISTORY: * Tonsillectomy. * Bilateral tubal ligation. ALLERGIES: BACTRIM. CURRENT MEDICATIONS: Include: * Zosyn. * Tylenol. * Zofran. SOCIAL HISTORY: No alcohol, tobacco, or illicit drug use. FAMILY HISTORY: Noncontributory. REVIEW OF SYSTEMS: Greater than 10 systems were reviewed, negative except as documented above. PHYSICAL EXAMINATION: GENERAL: A middle-aged female, awake, not in distress. VITAL SIGNS: Temperature 98.6, pulse 70, respiratory rate 18 and BP 148/83. EYES: No icterus. Pupils equal and reactive. HENT: No oral thrush seen. Moist oral mucosa. NECK: Supple, no JVD or thyromegaly. LUNGS: Good air entry. No rales, no rhonchi. CARDIOVASCULAR: S1, S2 regular. No murmur heard. ABDOMEN: Full, soft, nontender. Bowel sounds are present. CENTRAL NERVOUS SYSTEM: Awake, alert, oriented x 3. No focal deficits. SKIN: No rashes, no itchiness. LYMPHATIC: No peripheral lymphadenopathy. BACK: No deformity, no pressure ulcer. MUSCULOSKELETAL: No joint swelling, erythema, or tenderness. LABORATORY DATA: Sodium 139, potassium 4.6, BUN 5, creatinine 0.8. WBC 8.7, hemoglobin 12.3, platelets 281. Urine culture growing gram-negative shlomo. RADIOLOGY: CT of the abdomen unremarkable. ASSESSMENT: The patient is a 58-year-old female presenting with dysuria and urinary frequency. CURRENT PROBLEMS: Include: * UTI. * History of infection with multidrug resistant organism. * Hypertension. PLAN: * Continue Zosyn. * Follow up cultures. * Continue pain management. * Continue antiemetic. * Continue GI prophylaxis. * Monitor electrolytes. * Continue DVT prophylaxis. Thank you. TID: [id number] RECEIPT: [id number]
--- NOTE | 2024-07-20 22:07 | NUR ---
PAGED PT COMPLAINTS OF ITCHING, NOTED REDNESS TO EARS AND UPPER EXTREMITIES. DUE MEDS ADMINISTERED, TOLERATED WELL. PT REQUESTING BENADRYL. PAGED CLERK SPECIALIST WELDER TACK VIA ANSWERING SERVICE, AWAITING CALL BACK.
--- NOTE | 2024-07-20 22:22 | NUR ---
CALL NO CALL BACK FROM FOREIGN STUDENT ADVISER COTTON BROKER. CALLED FOREIGN STUDENT ADVISER AND SPOKE WITH ARELY SAUL. REFERRED PT'S ITCHING. NEW MED ORDER RECEIVED, PLEASE REFER TO CPOE. WILL MEDICATE PT.
[2024-07-20] MEDS: DiphenhydrAMINE HCL 25 MG CAPSULE PO ONE (22:27)
[2024-07-21 00:53] VITALS: BP 138/82; PULSE 78; RESP 18; TEMP 98.8
[2024-07-21 04:30] VITALS: BP 141/80; PULSE 74; RESP 18; TEMP 98.3
--- NOTE | 2024-07-21 04:55 | NUR ---
MEDS LUMBER SORTER IN TO DRAW BLOOD. NO CONCERNS VERBALIZED. DUE MEDS ADMINISTERED, TOLERATED WELL. KEPT RESTED AND COMFORTABLE. FOR MORE CARE.
[2024-07-21 05:12] LABS: BASOPHILS # (AUTO) 0.11 K/uL (0.00-0.20); BASOPHILS % (AUTO) 1.8 % (0.0-5.0); EOSINOPHILS # (AUTO) 0.16 K/uL (0.00-0.70); EOSINOPHILS % (AUTO) 2.6 % (0.0-8.0); HEMATOCRIT 35.3 % (36-48); IMMATURE GRANULOCYTE ABSOLUTE 0.01 K/uL (0-1); LYMPHOCYTES # (AUTO) 2.1 K/uL (1.0-4.8); LYMPHOCYTES % (AUTO) 34.8 % (21.0-51.0); MEAN CORPUSCULAR HEMOGLOBIN 33.8 pg (27.0-33.0); MEAN CORPUSCULAR HGB CONC 33.1 g/dL (32.0-36.0); MONOCYTES # (AUTO) 0.6 K/uL (0.1-1.0); MONOCYTES % (AUTO) 9.2 % (3.0-13.0); NEUTROPHILS # (AUTO) 3.1 K/uL (1.8-7.7); NEUTROPHILS % (AUTO) 51.4 % (40.0-77.0); PLATELET COUNT (AUTO) 236 K/uL (130-400); RED BLOOD CELL COUNT(AUTO) 3.46 MIL/uL (4.00-5.50); RED CELL DISTRIBUTION WIDTH 12.5 % (11.0-15.5); WHITE BLOOD COUNT (AUTO) 6.1 K/uL (4.8-10.8)
[2024-07-21 05:20] LABS: CREATININE 0.7 mg/dL (0.5-1.0); POTASSIUM 4.6 mmol/L (3.5-5.1)
[2024-07-21 08:00] VITALS: BP 152/88; PULSE 67; RESP 18; TEMP 98.4; O2SAT 95
[2024-07-21 12:00] VITALS: BP 136/82; PULSE 75; RESP 18; TEMP 98.1
--- NOTE | 2024-07-21 12:22 | DS ---
Discharge Summary Hospital Course Summary: Patient seen and examined in room 317 PCP self-referral Admitting date 07/19/2024 This is a pleasant 58-year-old female who was originally admitted due to complicated cystitis and recurrent UTI. He has a recent history of ESBL E coli in the urine on July 07, 2024 from urine culture collected. Infectious disease specialist Dr. Ordonez was consulted and recommended patient be discharged on Levaquin p.o. to finish out antibiotic therapy in the outpatient setting. Today's labs are stable. Latest vital signs are also stable. Patient continue to report some discomfort with urination but reports it is tolerable. From medical standpoint patient is stable and cleared for discharge. Advised patient to follow up with PCP in 2-3 days for continued evaluation. Continue taking Levaquin as recommended by ID. Continue Pyridium 200 mg p.o. t.i.d. as needed for painful urination. Patient verbalized understanding of instructions and discharge plan. Medications have been reconciled. Script has been sent to patient's pharmacy. Script for Levaquin has been provided to patient by Dr. Ordonez. Field Staff(s): Infectious disease specialist Dr. Ordonez Assessment/Plan: ASSESSMENT: Acute complicated cystitis, POA urine culture positive for E coli ESBL Recurrent urinary tract infection, + ESBL on 07/2024 Chronic problem list: Anxiety, hypercholesteremia, history of opiate addiction PLAN: Transitioning from IV Zosyn to p.o. Levaquin as recommended by ID Following Dr. Ordonez antibiotic recommendations Continue Pyridium 200 mg PO TID scheduled X2 days. Medically cleared for discharge today Monitor for fevers. Follow WBCs and urine cultures. Antibiotics tailored to urine cultures. Monitor Blood pressures every4 hours and as needed. Continue amlodipine 5 mg p.o. daily Continue hydralazine 10 mg IV for systolic above 160 mmHg Home medication was reviewed. Continue to monitor renal and liver function. Monitor and replace electrolytes per hospital protocol Continue to monitor a.m. labs, final cultures PRN Treatment - Add when necessary meds for nausea, vomiting, pain, constipation, insomnia. DVT/GI prophylaxis- Continue Lovenox at current dose. Full CODE STATUS Discharge Instructions: Okay to discharge home. Follow up with PCP in 2-3 days for continued evaluation. Continue Levaquin as recommended by ID. Continue Pyridium 200 mg p.o. t.i.d. p.r.n. for the next three days. This document was generated in part using voice recognition software, occasional wrong word or sound alike substitutions may have occurred due to the inherent limitations of voice recognition software. Read the chart carefully and recognize using context, where the substitutions have occurred. Although every effort was made to edit the content, supervisor firearms and typing errors may occur This case was discussed with Dr. Teran and above plan was formulated Home Medications: Discontinued Scripts Nitrofurantoin Monohyd/M-Cryst (Macrobid 100 mg Capsule) 100 Mg Capsule, 1 CAP PO BID for 5 Days, #10 CAP 0 Refills Prov:YESICA MATTHEWSP 07/07/24 Time spent arranging discharge: 31-60 minutes ИВАН LACKEY FREIGHT DELIVERY DRIVER Jul 21, 2024 12:22
[2024-07-21] MEDS ORDERED: PHEN-847 PO (12:24)
--- NOTE | 2024-07-21 12:50 | PN ---
INFECTIOUS DISEASE PROGRESS NOTE Date of Service: Jul 21, 2024 SUBJECTIVE: This is a 58-year-old female patient with past medical history of urinary tract infection with multi drug-resistant organism who was admitted to the hospital with chief complaint of dysuria and hematuria. A urinalysis was positive on admission. Patient was seen and examined at bedside in room 317. Patient is awake, alert and oriented x3. The final urine culture results came back positive for ESBL, E coli. No growth reported on the blood cultures and patient has remained afebrile. From Infectious Disease standpoint patient can be discharged to home on levofloxacin p.o. for 10 days. Prescription was written and given to nurse. PHYSICAL EXAM EYES: Anicteric. Pupils equal and reactive. HENT: No oral thrush seen, moist Oral mucosa NECK: Supple, no JVD or thyromegaly. LUNGS: Good air entry. No rales, no rhonchi. CARDIOVASCULAR: S1, S2 regular. No murmur heard. ABDOMEN: Soft, non tender, bowel sounds present, no organomegaly CENTRAL NERVOUS SYSTEM: Awake, alert, oriented x 3. No focal deficits. SKIN: No rashes, no swelling. LYMPHATICS: No peripheral lymphadenopathy MUSCULOSKELETAL: No joint swelling, erythema or tenderness. EXTREMITIES: No cyanosis or clubbing BACK: No deformity, no pressure ulcer. GENITOURINARY: No dysuria or hematuria Vital Sign (Last 12 Hours) 07/21/24 07/21/24 07/21/24 07/21/24 00:53 04:30 08:00 08:00 Temp 98.8 98.2 98.4 Pulse 78 74 67 Resp 18 18 18 B/P (MAP) 138/82 141/80 152/88 Pulse Ox 100 96 95 95 O2 Delivery Room Air Room Air Room Air Room Air* O2 Flow Rate 0 FiO2 21 21 07/21/24 12:00 Temp 98.1 Pulse 75 Resp 18 B/P (MAP) 136/82 Pulse Ox 98 O2 Delivery Room Air FiO2 21 Intake & Output (last 24hrs) 07/20/24 07/20/24 07/21/24 15:00 23:00 07:00 Intake Total 1950 ml 900.0 ml Balance 1950 ml 900.0 ml LABS: Laboratory: Test 07/21/24 04:53 07/20/24 06:00 07/19/24 16:07 07/19/24 15:30 Range/Units White Blood Count 6.1 # 4.8-10.8 K/uL Red Blood Count 3.46 L 4.00-5.50 MIL/uL Hemoglobin 11.7 L 12.0-16.0 g/dL Hematocrit 35.3 L 36-48 % Mean Corpuscular Volume 102.0 H 79-99 fL Mean Corpuscular Hemoglobin 33.8 H 27.0-33.0 pg Mean Corpuscular Hemoglobin Concent 33.1 32.0-36.0 g/dL Red Cell Distribution Width 12.5 11.0-15.5 % Platelet Count 236 130-400 K/uL Mean Platelet Volume 9.1 7.5-10.5 fL Immature Granulocyte % (Auto) 0.2 0-1 % Neutrophils (%) (Auto) 51.4 40.0-77.0 % Lymphocytes (%) (Auto) 34.8 21.0-51.0 % Monocytes (%) (Auto) 9.2 3.0-13.0 % Eosinophils (%) (Auto) 2.6 0.0-8.0 % Basophils (%) (Auto) 1.8 0.0-5.0 % Neutrophils # (Auto) 3.1 1.8-7.7 K/uL Lymphocytes # (Auto) 2.1 1.0-4.8 K/uL Monocytes # (Auto) 0.6 0.1-1.0 K/uL Eosinophils # (Auto) 0.16 0.00-0.70 K/uL Basophils # (Auto) 0.11 0.00-0.20 K/uL Absolute Immature Granulocyte (auto 0.01 0-1 K/uL Nucleated Red Blood Cells 0.0 0.0-0.19 % Sodium Level 144 136-145 mmol/L Potassium Level 4.6 3.5-5.1 mmol/L Chloride Level 111 101-111 mmol/L Carbon Dioxide Level 25 21-32 mmol/L Blood Urea Nitrogen 6 L 7-18 mg/dL Creatinine 0.7 0.5-1.0 mg/dL Glomerular Filtration Rate Calc 101 >90 mL/min Random Glucose 102 70-105 mg/dL Total Calcium 8.3 L 8.5-10.1 mg/dL Phosphorus Level 4.3 2.5-4.9 mg/dL Magnesium Level 2.00 1.80-2.40 mg/dL Thyroid Stimulating Hormone (TSH) 9.02 H 0.36-3.74 uIU/mL Thyroxine (T4) 4.7 4.7-13.3 ug/dL Free Triiodothyronine (T3) pg/mL 2.81 2.18-3.98 pg/mL Lactic Acid Level 2.0 0.8-2.5 mmol/L Troponin I High Sensitivity < 4 L 4-50 ng/L Procalcitonin < 0.05 L 0.05-0.5 ng/mL Urine Color COLORLESS YELLOW Urine Appearance CLEAR CLEAR Urine pH 5.0 5.0-8.0 Urine Specific [place] 1.001 1.001-1.031 Urine Protein NEGATIVE NEGATIVE mg/dL Urine Glucose (UA) NEGATIVE NEGATIVE mg/dL Urine Ketones NEGATIVE NEGATIVE mg/dL Urine Occult Blood LARGE H NEGATIVE Urine Nitrate NEGATIVE NEGATIVE Urine Bilirubin NEGATIVE NEGATIVE mg/dL Urine Urobilinogen 0.2 0.2-1.0 mg/dL Urine Leukocyte Esterase 75 H NEGATIVE [place]/uL Urine RBC None 0-1 /HPF Urine WBC 2-5 H 0-1 /HPF Urine Squamous Epithelial Cells RARE 0-2 /HPF Urine Other Crystals (Auto) 1 None Seen /HPF Urine Bacteria FEW None Seen /HPF DIAGNOSTICS / RADIOLOGY: PATIENT: SHERRON DURBIN ACCT: [id number] LOC: [facility] U: [id number] AGE/SX: 58/F ROOM: [facility] RE07/19/[address]: RUSTY NAVARRO MD : 1965 BED: 1 DIS: STATUS: ADM [place] TLOC: SPEC: [id number] JAGDISH: 07/19/24-1530 STATUS: COMP REQ: [id number] RECD: 07/20/24 [facility] DR: ANDREW LOZANO MD SOURCE: [facility] [place] ENTR: 07/20/24 [facility] DR: GER SPDESC: CLEAN CAT SELF,REFERRAL ORDERED: AERO ID & SENS Procedure Result [place] Date-Time AEROBIC ID & SENSITIVITIES Final 07/21/24-06 [facility] EXTENDED SPECTRUM BETA-LACTAMASE ORGANISM IDENTIFIED. CRITICAL RESULT WAS CALLED BY NAYELI RODRIGUEZ ON 07/21/24 AT 0613. CRITICAL VALUES WERE READ BACK AND ACKNOWLEDGED BY TERRY ANDREWS ([facility] [place]) COLONY DESCRIPTION: DAY 1: COLONY COUNT: >100,000 CFU/ML GRAM NEGATIVE RODS IDENTIFICATION AND SENSITIVITY TO FOLLOW COMMENTS(R): ESBL ESCHERICHIA COLI E COLI M.I.C. RX --------- ---- AMPICILLIN >16 R* AZTREONAM >16 ESBL CEFAZOLIN >16 R* CEFTAZIDIME >16 ESBL CEFTAZIDIME/AVIBACTAM <=8 S CEFTRIAXONE >2 ESBL GENTAMICIN <=2 S LEVOFLOXACIN <=0.5 S NITROFURANTOIN <=32 S MEROPENEM <=1 S PIPERACILLIN/TAZOBACTAM <=8 S TRIMETHOPRIM/SUFLAMETHOXAZOLE <=2/38 S ESCHERICHIA COLI: NEGATIVE/URINE COMBO 62 Lab Alert - ESBL (Extended-Spectrum Beta-Lactamase event producer) ASSESSMENT: Urinary tract infection with ESBL, E coli. Infection with multidrug resistant organism. Hypertension. PLAN: From Infectious Disease standpoint patient can be discharged to home on levofloxacin p.o. for 10 days. Prescription was written and given to nurse. This case was reviewed and discussed with my supervising physician and the above assessment and plan was formulated and agreed upon. ATTESTATION BY PHYSICIAN I have seen and examined the patient. I reviewed the documentation, medical decision making, and treatment plan as noted by the mid-level provider above. I agree with the findings and plan of care. KOBE ABDI MD, [facility] Jul 21, 2024 12:50
--- NOTE | 2024-07-21 13:35 | NUR ---
PATIENT DISCHARGED HOME ID BAND AND IV REMOVED. DISCHARGE INSTRUCTIONS EXPLAINED AND GIVEN TO PATIENT. MEDICINE SCRIPT GIVEN TO PATIENT. PATIENT VERBALIZED UNDERSTANDING. WHEELED DOWN TO PRIVATE CAR.
== END 2024-07-21 13:35 | disposition home or self-care (01) ==
LOC: EDH 12:39 → EDHIP 18:56 → 3CH 21:11
PROVIDERS: ADMIT Internal Medicine; ATTEND Internal Medicine
DX: N30.01 Acute cystitis with hematuria (principal); F41.9 Anxiety disorder, unspecified; E78.00 Pure hypercholesterolemia, unspecified; I10 Essential (primary) hypertension; F11.20 Opioid dependence, uncomplicated; B96.20 Unspecified Escherichia coli [E. coli] as the cause of diseases classified elsewhere; Z86.19 Personal history of other infectious and parasitic diseases; Z88.2 Allergy status to sulfonamides; Z88.8 Allergy status to other drugs, medicaments and biological substances; Z79.899 Other long term (current) drug therapy
CPT/HCPCS: 96365; 96366 ×3; 99284; 84484; 80048 ×3; 85025 ×2; 87040 ×2; 87086 ×2; 87186; 83605; 81001; 36415 ×3; 74176; 84145; 96372 ×2; 96361 ×2; 96375; 84443; 84436; 83735; 84100; 85027; 84481; G0378 ×42; J7030; J2543 ×6; J1200; Q0163; J1650 ×2

== ENCOUNTER 2025-01-25 21:16 | Emergency (ER) | payer OTHER ==
[~2025-01-25] VITALS: Ht 172.7 cm; Wt 71.7 kg
[~2025-01-25 21:16] MED LIST changes: -NITR100C4 PO; +PHEN-847 PO
[2025-01-25 21:48] LABS: NUCLEATED RED BLOOD CELLS 0.0 % (0.0-0.19); PLATELET COUNT (AUTO) 224.0 K/uL (130-400); RED BLOOD CELL COUNT(AUTO) 3.98 MIL/uL (4.00-5.50); RED CELL DISTRIBUTION WIDTH 11.5 % (11.0-15.5); WHITE BLOOD COUNT (AUTO) 6.4 K/uL (4.8-10.8)
[2025-01-25 21:56] LABS: APPEARANCE,URINE CLEAR (CLEAR); GLUCOSE, URINE (UA) NEGATIVE (NEGATIVE); LEUKOCYTE ESTERASE ,URINE NEGATIVE Leu/uL (NEGATIVE); NITRATE,URINE NEGATIVE (NEGATIVE); OCCULT BLOOD,URINE NEGATIVE (NEGATIVE)
[2025-01-25 21:57] LABS: ADD UA MICROSCOPIC NO
[2025-01-25 22:05] LABS: CREATININE 0.5 mg/dL (0.5-1.0); GLOMERULAR FILTR. RATE CALC 109.0 mL/min (>90); GLUCOSE,RANDOM 105.0 mg/dL (70-105); SODIUM SERUM 135.0 mmol/L (136-145); UREA NITROGEN, BLOOD 5.0 mg/dL (7-18)
[2025-01-25] MEDS ORDERED: IOHEXOL-350 75 ML VIAL IV ONE (22:21)
--- NOTE | 2025-01-25 23:22 | ERN ---
ED Note History of Present Illness Stated Complaint: SWALLOW PROB Chief Complaint: Difficulty Swallowing Time Seen by MD: 21:24 Dictation: This is a 59-year-old female who presented to the emergency room with complaints of dysphagia for the past 4 months. She stated that she slowly started experiencing difficulty with swallowing solids. Recently she has been chopping up the foot to swallow. She is able to inches liquids without any problem. No history of any bleeding from oral cavity. She also stated that the food after she swallows sometimes gets stuck in the esophageal area and she regurgitates. No weight loss no heartburn or indigestion no gastroesophageal reflux symptoms. Temperature 98.6 pulse 85 respirations 18 blood pressure 122/89 with a pulse oximetry of 98% on room air Chronic medical problems include anxiety depression, hypercholesterolemia, history of UTIs, history of opioid dependence and tobacco abuse Allergies: Coded Allergies: sulfamethoxazole (Unverified Allergy, Unknown, 07/07/24) trimethoprim (Unverified Allergy, Unknown, 07/07/24) Uncoded Allergies: TAPE (Allergy, Mild, 07/20/24) Home Meds Active Scripts Phenazopyridine HCl (Pyridium) 200 Mg Tab, 1 TAB PO TID for urinary discomfort for 3 Days, #9 TAB 0 Refills after food Prov:ИВАН LACKEY 07/21/24 Past Medical History Past Medical History: Anxiety, Depression, High Cholesterol, UTI, Other Additional Past Medical Hx: OPIOID ADDICTION Surgical History: Tonsillectomy, Other Surgical History Other: TUBAL Family History: Negative Social History: Smokers, Drugs (Opioid addiction), ETOH History: Not Applicable RN Note Reviewed/Agreed w/PFSH: Yes Review of System Dictation Constitutional: Negative for fever,chills, and weight loss Eyes: Negative for injury, pain,redness, and discharge ENT: Negative for injury,pain or swelling positive for dysphagia in the at the throat level Cardiovascular: Negative for chest pain, palpitations, and edema Respiratory: Negative for shortness of breath, cough, and wheezing, Abdomen/GI: Negative for abdominal pain, nausea, vomiting, diarrhea, and constipation positive for sensation of food getting stuck in the lower esophagus Back: Negative for injury and pain : Negative for injury, bleeding and discharge MS/Extremity: Negative for injury and deformity Skin: Negative for rash, and discoloration Neuro: Negative for headache, weakness, numbness, tingling, and seizure Psych: Negative for suicide ideation, homicidal ideation, and hallucinations Initial Vital Sign VS Vital Signs Date Time Temp Pulse Resp B/P (MAP) Pulse Ox O2 Delivery O2 Flow Rate FiO2 01/25/25 21:17 98.6 85 18 122/89 98 01/25/25 21:48 Room Air* 0 21 Physical Exam Dictation General: awake, alert, NAD Head/Face: Normocephalic, atraumatic Eyes: PERRL, EOMI, vision at baseline ENT: oral cavity clear, TMs clear, no signs of infection no stridor no choking episodes Neck: Trachea midline, supple, no nuchal rigidity Cardiovascular: RRR, normal S1/S2, No MRGs, no JVD Respiratory: CTAB, no respiratory distress, No rales or wheezes Abdomen: Soft, non-tender, non-distended, normal bowel sounds, no guarding or rebound. Skin: Warm, dry, normal turgor, no rash MS/Extremity: Pulses equal, no cyanosis, neurovascular intact, FROM Neuro: COAx4, GCS 15, strength 5/5, CN 2-12 intact, normal cerebellar exam, normal gait, Psych: Normal behavior, mood, and affect normal Extremities-trace edema without any palpable cords, Homans sign is negative Results (Laboratory/Radiology) Laboratory/Radiology Laboratory Tests Test 01/25/25 21:41 01/25/25 21:45 White Blood Count 6.4 K/uL (4.8-10.8) Red Blood Count 3.98 MIL/uL (4.00-5.50) L Hemoglobin 13.6 g/dL (12.0-16.0) Hematocrit 39.9 % (36-48) Mean Corpuscular Volume 100.3 fL (79-99) H Mean Corpuscular Hemoglobin 34.2 pg (27.0-33.0) H Mean Corpuscular Hemoglobin Concent 34.1 g/dL (32.0-36.0) Red Cell Distribution Width 11.5 % (11.0-15.5) Platelet Count 224 K/uL (130-400) Mean Platelet Volume 9.0 fL (7.5-10.5) Nucleated Red Blood Cells 0.0 % (0.0-0.19) Sodium Level 135 mmol/L (136-145) L Potassium Level 4.1 mmol/L (3.5-5.1) Chloride Level 101 mmol/L (101-111) Carbon Dioxide Level 27 mmol/L (21-32) Blood Urea Nitrogen 5 mg/dL (7-18) L Creatinine 0.5 mg/dL (0.5-1.0) Glomerular Filtration Rate Calc 109 mL/min (>90) Random Glucose 105 mg/dL (70-105) Total Calcium 8.9 mg/dL (8.5-10.1) Urine Color COLORLESS (YELLOW) Urine Appearance CLEAR (CLEAR) Urine pH 5.0 (5.0-8.0) Urine Specific [place] 1.002 (1.001-1.031) Urine Protein NEGATIVE mg/dL (NEGATIVE) Urine Glucose (UA) NEGATIVE mg/dL (NEGATIVE) Urine Ketones NEGATIVE mg/dL (NEGATIVE) Urine Occult Blood NEGATIVE (NEGATIVE) Urine Nitrate NEGATIVE (NEGATIVE) Urine Bilirubin NEGATIVE mg/dL (NEGATIVE) Urine Urobilinogen 0.2 mg/dL (0.2-1.0) Urine Leukocyte Esterase NEGATIVE [place]o/uL Labs Reviewed?: Yes CT Scan Comment: REASON: dysphagia and seere pain in the throat ORDERING PHYSICIAN: MARSHALL MEDINA MD PROCEDURE: [id number] - CT NECK SOFT TISSUE W/WO CONTR EXAM: CT Neck without and With IV Contrast CLINICAL HISTORY: Dysphagia and sore throat. TECHNIQUE: Contiguous axial images were obtained through the neck without and with contrast. Reconstructed imaging. Reformatted/MPR images were performed. CT scan is done according to ALARA (As Low as Reasonably Achievable). CONTRAST: Omnipaque 350. COMPARISON: None. FINDINGS: Included intracranial substances, and orbits are grossly unremarkable. Mild chronic right sphenoid sinusitis. The remaining paranasal sinuses are clear. Mild diffuse mucosal thickening in the oropharynx with mildly prominent lingual tonsils, mild diffuse thickening of the true and false vocal cords. The features concerning for mild pharyngitis and laryngitis. Unremarkable nasopharynx. Unremarkable epiglottis, vallecula, aryepiglottic folds, and pyriform sinuses. The hyoid bone, thyroid, cricoid, and arytenoid cartilages are unremarkable. Parotid, submandibular, and thyroid glands are grossly unremarkable. No pathologically enlarged lymph nodes. Visualized included lung apices are grossly clear. No acute osseous abnormality. Multilevel cervical spondylosis. Small calcified plaques at the bilateral carotid bifurcations. IMPRESSION: Mild pharyngitis and laryngitis. No abscess or mass is evident. Mild chronic right sphenoid sinusitis. Multilevel cervical spondylosis. /[place] DICTATED BY: KEIKO ARANA Jr., MD DATE: 01/26/2548 ELECTRONICALLY SIGNED BY: KEIKO ARANA Jr., MD DATE: 01/26/2548 ED Course ED Course Orders Procedure Category Date Status Time Cbc Without LAB 01/25/25 Complete Differential 21:32 Basic Metabolic Panel LAB 01/25/25 Complete 21:32 [address] Neck Soft Tissue CT 01/25/25 Resulted W/Wo Contr 21:32 Urinalysis Profile LAB 01/25/25 Complete 21:42 Iohexol (Omnipaque) PHA 01/25/25 Complete 22:21 Dexamethasone 4mg/Ml PHA 01/25/25 Complete 1ml Vial (Dexametha 23:30 Current Medications Medications (Trade) Dose Ordered Sig/Emiliano Route PRN Reason Start Time Stop Time Status Last Admin Dose Admin Dexamethasone Sodium Phosphate (dexaMETHasone 4MG/ML 1ML VIAL) 6 mg ONCE ONCE IM 01/25/25 23:30 01/25/25 23:31 DC 01/25/25 23:33 Iohexol (Omnipaque) 75 ml STK-MED ONCE IV 01/25/25 22:21 01/25/25 22:24 DC Vital Signs Date Time Temp Pulse Resp B/P (MAP) Pulse Ox O2 Delivery O2 Flow Rate FiO2 01/26/25 00:04 98.8 85 18 132/65 98 Room Air* 0 01/25/25 21:48 98.8 88 18 134/66 98 Room Air* 0 01/25/25 21:17 98.6 85 18 122/89 98 We will perform diagnostic labs, advanced imaging and administer medications according to the patient's complaint. Once the results are available, will revi ew and personally interpreted the labs to rule out any acute life-threatening emergency the trach require immediate intervention and treatment. I will then re-evaluate the patient after treatment and diagnostic exams have return to determine whether the patient requires any further testing, can safely be discharged home or need further admission to hospital for additional treatment and evaluation. Labs reviewed CBC BNP 7 are within normal limits urinalysis is unremarkable. The only abnormality on the hematological in disease is increased MCV at 100.3 10:[address] scan of the soft tissues of the neck is pending 11:[address] scan of the soft tissues of the neck is done results are pending 12:[address] scan of the results of the soft tissues of the neck noted mild diffuse edema of the pharyngeal and laryngeal area, no obvious mass or narrowing of the airway was noted. Please see the report for full details I updated the patient on the CT scan findings and recommended gastroenterology evaluation willam she may also have to see ENT if the GI workup is negative Medical Decision Making MDM Differential diagnosis: Dysphagia, esophageal stricture, laryngeal carcinoma, oropharyngeal pathology Rationale: Tests considered and ordered secondary to shared decision making include: Previous outside records reviewed: Old ER visits. Risk of complication and/or morbidity or mortality of patient management: None Medications-Per medication reconciliation Need for hospitalization: Patient does not meet criteria for hospitalization. Need for emergency major/minor surgery: No There are no social concerns with this patient. Prescription drug management Prescriptions will include symptomatic care Patient's prior external medical records from other ER visits were reviewed by me as indicated. Prior testing and results from previous visits were reviewed. Prior tests were taken into account with medical decision making and resource utilization, independent historian/historians were used to obtain complete medical history. I independently interpreted the test that were performed, results were reviewed by me and considered findings on radiology if ordered. Medical management and examination interpretation discussions were had by me with other qualified healthcare professionals as indicated for the patient's care. Problem List Problem List: (1) Pharyngitis (2) Dysphagia (3) Tobacco abuse (4) Opioid abuse (5) Anxiety and depression DX & DISP Disposition: Discharge Departure Impression: Primary Impression: Dysphagia Additional Impressions: Anxiety and depression, Opioid abuse, Tobacco abuse, Pharyngitis Condition: Stable Scripts Amoxicillin/Potassium Clav (Amox Tr-K Clv 875-125 mg Tab) 875 Mg-125 Mg Tablet 1 EACH PO BID for 7 Days, #14 TAB 0 Refills Prov: MARSHALL MEDINA MD 01/26/25 Prednisone (Prednisone) 20 Mg Tablet 1 TAB PO AD for 6 Days, #14 TAB 0 Refills TAKE 1 TAB BY MOUTH THREE TIMES PER DAY X3 DAYS, THEN TAKE 1 TAB BY MOUTH TWICE A DAY X2 DAYS, THEN TAKE 1 TAB BY MOUTH ONCE A DAY X1 DAY. Prov: MARSHALL MEDINA MD 01/26/25 Additional Instructions: Patient and the caregiver have been informed of all the diagnostic tests and the imaging conducted during the today's visit to the emergency room and has verbalized understanding of the results I have personally reviewed and interpreted all diagnostic exams performed here in the ER today as well as the vital signs documented by the nursing staff. The patient is now being discharged to home and should follow up with the primary care physician or the specialist as directed by the ER staff. Follow-up with primary care provider in 1 to 2 days. Take medications as dire cted here in the emergency room. Okay to continue home medications unless otherwise discussed during your visit in the emergency room today. Return to your nearest emergency room if symptoms worsen or if there is no improvement. Call 911 if you need immediate assistance. Take Tylenol or Motrin [id number] as needed and if no contraindications are present. Increase oral hydration. A wound culture or urine culture was ordered here in the emergency room department please follow-up with primary care provider and advise them to get repeat ports from our facility. If you had any Sharath wrap/splints that were applied here, please do not remove them until you see your primary care or specialty. Referrals: SELF,REFERRAL (PCP) WANDA ELLER MD, ANURADHA R MD Jan 25, 2025 23:22
--- NOTE | 2025-01-25 23:50 | HMCIMG ---
EXAM: CT Neck without and With IV Contrast CLINICAL HISTORY: Dysphagia and sore throat. TECHNIQUE: Contiguous axial images were obtained through the neck without and with contrast. Reconstructed imaging. Reformatted/MPR images were performed. CT scan is done according to ALARA (As Low as Reasonably Achievable). CONTRAST: Omnipaque 350. COMPARISON: None. FINDINGS: Included intracranial substances, and orbits are grossly unremarkable. Mild chronic right sphenoid sinusitis. The remaining paranasal sinuses are clear. Mild diffuse mucosal thickening in the oropharynx with mildly prominent lingual tonsils, mild diffuse thickening of the true and false vocal cords. The features concerning for mild pharyngitis and laryngitis. Unremarkable nasopharynx. Unremarkable epiglottis, vallecula, aryepiglottic folds, and pyriform sinuses. The hyoid bone, thyroid, cricoid, and arytenoid cartilages are unremarkable. Parotid, submandibular, and thyroid glands are grossly unremarkable. No pathologically enlarged lymph nodes. Visualized included lung apices are grossly clear. No acute osseous abnormality. Multilevel cervical spondylosis. Small calcified plaques at the bilateral carotid bifurcations. IMPRESSION: Mild pharyngitis and laryngitis. No abscess or mass is evident. Mild chronic right sphenoid sinusitis. Multilevel cervical spondylosis. /[place]
[2025-01-26 00:04] VITALS: BP 132/65; PULSE 85; RESP 18; TEMP 98.8; O2SAT 98
[2025-01-26] MEDS ORDERED: AMOX1TAB16 PO (00:12)
[2025-01-26] MEDS ORDERED: PRED20TA3 PO (00:12)
== END 2025-01-26 00:25 | disposition home or self-care (01) ==
LOC: EDH 21:16
DX: R13.10 Dysphagia, unspecified (principal); F41.9 Anxiety disorder, unspecified; F32.A Depression, unspecified; F11.10 Opioid abuse, uncomplicated; Z72.0 Tobacco use; J02.9 Acute pharyngitis, unspecified; E78.00 Pure hypercholesterolemia, unspecified; Z88.1 Allergy status to other antibiotic agents; Z88.2 Allergy status to sulfonamides; Z90.89 Acquired absence of other organs
CPT/HCPCS: 99285; 70492; 80048; 85027; 81003; 36415; 96372; J1100; Q9967